=== PATIENT | male | born 1945 | race American Indian/Alaskan Native ===

== ENCOUNTER 2017-03-28 15:41 | Emergency (ER) | payer MEDICARE ==
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
[2017-03-28 16:04] VITALS: BP 95/60
[2017-03-28 16:39] LABS: Basophils % (Auto) 0.5 % (0.0-1.8); Eosinophils % (Auto) 0.5 % (0.0-4.3); Hematocrit 36.7 % (35.5-45.6); Hemoglobin 11.6 gm/dl (11.8-15.2); Mean Corpuscular HGB Conc 32 % (32-34); Mean Corpuscular Hemoglobin 23 pg (28-32); Mean Corpuscular Volume 72 fl (84-94); Platelet Count 203 K/mm3 (140-440); Red Blood Count 5.06 M/mm3 (3.65-5.03); White Blood Count 8.1 K/mm3 (4.5-11.0)
[2017-03-28 16:41] LABS: Albumin 4.1 g/dL (3.9-5); Albumin/Globulin Ratio 1.1 %; BUN/Creatinine Ratio 20.58; Bilirubin,Total 0.5 mg/dL (0.1-1.2); Calcium 10.3 mg/dL (8.4-10.2); Chloride 97.3 mmol/L (98-107); Potassium 4.3 mmol/L (3.6-5.0); Total Protein 7.7 g/dL (6.3-8.2)
== END 2017-03-28 23:08 | disposition left against medical advice (07) ==
LOC: ED 15:41
DX: F29 Unspecified psychosis not due to a substance or known physiological condition (principal); Z53.21 Procedure and treatment not carried out due to patient leaving prior to being seen by health care provider
CPT/HCPCS: 36415; 80053; 85025; G0480; 80320

== ENCOUNTER 2017-03-31 10:24 | Emergency (ER) | payer MEDICARE ==
[2017-03-31 10:56] LABS: Basophils % (Auto) 0.5 % (0.0-1.8); Eosinophils % (Auto) 1.5 % (0.0-4.3); Hematocrit 36.5 % (35.5-45.6); Hemoglobin 11.6 gm/dl (11.8-15.2); Mean Corpuscular HGB Conc 32 % (32-34); Mean Corpuscular Volume 73 fl (84-94); Platelet Count 197 K/mm3 (140-440); Red Blood Count 5.03 M/mm3 (3.65-5.03); Red Cell Distribution Width 17.7 % (13.2-15.2); White Blood Count 6.9 K/mm3 (4.5-11.0)
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
[2017-03-31 11:13] LABS: Chloride 94.8 mmol/L (98-107); Mean Corpuscular Hemoglobin 23 pg (28-32); Potassium 3.6 mmol/L (3.6-5.0)
[2017-03-31 11:37] LABS: INR 1.6 (0.87-1.13)
[2017-03-31 11:38] LABS: Partial Thromboplastin Time 29.2 Sec. (24.2-36.6)
[2017-03-31 11:55] LABS: Urine Drugs of Abuse Note Disclamer
[2017-03-31 12:05] LABS: Bilirubin,Urine NEG (Negative); Blood,Urine NEG (Negative); Ketones,Urine NEG (Negative); Leukocyte Esterase,Urine MOD (Negative); Mucus,Urine FEW /HPF; Nitrite,Urine NEG (Negative); Protein,Urine <15 mg/dL mg/dL (Negative); Urobilinogen,Urine < 2.0 mg/dL (<2.0)
[2017-03-31] MEDS ORDERED: MACROBID PO ONE (15:00)
[2017-03-31 18:05] VITALS: BP 131/78
== END 2017-03-31 18:06 ==
LOC: ED 10:24
DX: R45.6 Violent behavior (principal); F31.9 Bipolar disorder, unspecified; N30.00 Acute cystitis without hematuria; R79.1 Abnormal coagulation profile; Z86.73 Personal history of transient ischemic attack (TIA), and cerebral infarction without residual deficits; I25.2 Old myocardial infarction; I50.9 Heart failure, unspecified; M19.90 Unspecified osteoarthritis, unspecified site; F32.9 Major depressive disorder, single episode, unspecified; E78.00 Pure hypercholesterolemia, unspecified
CPT/HCPCS: 36415; 80048; 80307; 81001; 85025; 85610; 85730; 99285; G0480; 80320

== ENCOUNTER 2017-04-04 01:33 | Emergency (ER) | payer MEDICARE ==
[2017-04-04] MEDS ORDERED: TYLENOL PO ONE (05:17)
--- NOTE | 2017-04-04 05:40 | Emergency Department Report ---
ED ENT HPI - General Chief complaint: Sore Throat Stated complaint: SORE THROAT Time Seen by Provider: 04/04/17 05:07 Source: patient Mode of arrival: Ambulatory Limitations: No Limitations - History of Present Illness Initial comments: 71-year-old male past medical history CHF, hypertension, hyperlipidemia presents with complaint of 3 days of sore throat. Patient states that he is having some difficulty swallowing solids, states he is able to swallow liquids without significant difficulty. Denies fever or chills. States he is having nonproductive cough. Denies any recent travel. States he lives in a jail. Awake alert and oriented 3, not in acute distress, nontoxic appearing, ambulating without difficulty. MD complaint: sore throat Onset/Timin -: days(s) Location: throat Severity: moderate Severity scale (0 -10): 6 Quality: aching Worsens with: swallowing, eating Associated Symptoms: sore throat - Related Data Home Medications Medication Instructions Recorded Confirmed Last Taken Lisinopril [Zestril TAB] 40 mg PO QDAY 10/31/15 03/31/17 Unknown Divalproex ER [Depakote ER] 300 mg PO TID 03/31/17 03/31/17 Unknown Docusate Sodium [Colace] 100 mg PO DAILY 03/31/17 03/31/17 Unknown Metoprolol [Lopressor TAB] 12.5 mg PO TID 03/31/17 03/31/17 Unknown Potassium Chloride 10 meq PO QDAY 03/31/17 03/31/17 Unknown Warfarin [Coumadin] 4 mg PO DAILY@1700 03/31/17 03/31/17 Unknown risperiDONE 1.5 mg PO BID 03/31/17 03/31/17 Unknown traZODone [Desyrel] 50 mg PO QHS 03/31/17 03/31/17 Unknown Previous Rx's Medication Instructions Recorded Last Taken Type Bisacodyl [Dulcolax suppos] 10 mg [place] QDAY PRN #30 supp.rect 11/09/15 02/19/16 Rx Hydrochlorothiazide [HCTZ] 25 mg PO QDAY tablet 11/09/15 1 Day Ago Rx Aspirin [Aspirin BABY CHEW TAB] 81 mg PO QDAY #30 tab.chew 03/07/16 Unknown Rx AtorvaSTATin [Lipitor] 40 mg PO QHS #30 tablet 03/07/16 Unknown Rx Diltiazem Cd [Cardizem CD] 240 mg PO QDAY #30 capsule 03/07/16 Unknown Rx Furosemide [Lasix TAB] 40 mg PO BID #60 tablet 03/07/16 Unknown Rx Nitrofurantoin [place]/M-Cryst 100 mg PO Q12HR #14 capsule 03/31/17 Unknown Rx [Macrobid CAP] Acetaminophen [Acetaminophen TAB] 500 mg PO Q6HR PRN #20 tablet 04/04/17 Unknown Rx Amoxicillin/K Clav Tab [Augmentin 1 tab PO Q12HR #14 tab 04/04/17 Unknown Rx 875 mg] Benzocaine/Menthol [Cepacol Sore 1 each MM Q4H PRN #1 box 04/04/17 Unknown Rx Throat Lozenge] Allergies Allergy/AdvReac Type Severity Reaction Status Date / Time shellfish derived Allergy Itching Verified 11/20/14 13:56 ED Dental HPI - General Chief complaint: Sore Throat Stated complaint: SORE THROAT Time Seen by Provider: 04/04/17 05:07 Source: patient Mode of arrival: Ambulatory Limitations: No Limitations - Related Data Home Medications Medication Instructions Recorded Confirmed Last Taken Lisinopril [Zestril TAB] 40 mg PO QDAY 10/31/15 03/31/17 Unknown Divalproex ER [Depakote ER] 300 mg PO TID 03/31/17 03/31/17 Unknown Docusate Sodium [Colace] 100 mg PO DAILY 03/31/17 03/31/17 Unknown Metoprolol [Lopressor TAB] 12.5 mg PO TID 03/31/17 03/31/17 Unknown Potassium Chloride 10 meq PO QDAY 03/31/17 03/31/17 Unknown Warfarin [Coumadin] 4 mg PO DAILY@1700 03/31/17 03/31/17 Unknown risperiDONE 1.5 mg PO BID 03/31/17 03/31/17 Unknown traZODone [Desyrel] 50 mg PO QHS 03/31/17 03/31/17 Unknown Previous Rx's Medication Instructions Recorded Last Taken Type Bisacodyl [Dulcolax suppos] 10 mg [place] QDAY PRN #30 supp.rect 11/09/15 02/19/16 Rx Hydrochlorothiazide [HCTZ] 25 mg PO QDAY tablet 11/09/15 1 Day Ago Rx Aspirin [Aspirin BABY CHEW TAB] 81 mg PO QDAY #30 tab.chew 03/07/16 Unknown Rx AtorvaSTATin [Lipitor] 40 mg PO QHS #30 tablet 03/07/16 Unknown Rx Diltiazem Cd [Cardizem CD] 240 mg PO QDAY #30 capsule 03/07/16 Unknown Rx Furosemide [Lasix TAB] 40 mg PO BID #60 tablet 03/07/16 Unknown Rx Nitrofurantoin [place]/M-Cryst 100 mg PO Q12HR #14 capsule 03/31/17 Unknown Rx [Macrobid CAP] Acetaminophen [Acetaminophen TAB] 500 mg PO Q6HR PRN #20 tablet 04/04/17 Unknown Rx Amoxicillin/K Clav Tab [Augmentin 1 tab PO Q12HR #14 tab 04/04/17 Unknown Rx 875 mg] Benzocaine/Menthol [Cepacol Sore 1 each MM Q4H PRN #1 box 04/04/17 Unknown Rx Throat Lozenge] Allergies Allergy/AdvReac Type Severity Reaction Status Date / Time shellfish derived Allergy Itching Verified 11/20/14 13:56 ED Review of Systems ROS: Stated complaint: SORE THROAT Other details as noted in HPI Constitutional: denies: chills, fever Eyes: denies: eye pain, eye discharge, vision change ENT: throat pain. denies: ear pain Respiratory: cough. denies: shortness of breath, wheezing Cardiovascular: denies: chest pain, palpitations Endocrine: no symptoms reported Gastrointestinal: denies: abdominal pain, nausea, diarrhea Genitourinary: denies: urgency, dysuria Musculoskeletal: denies: back pain, joint swelling, arthralgia Skin: denies: rash, lesions Neurological: denies: headache, weakness, paresthesias Psychiatric: denies: anxiety, depression Hematological/Lymphatic: denies: easy bleeding, easy bruising ED Past Medical Hx - Past Medical History Hx Hypertension: Yes Hx CVA: Yes (2011) Hx Heart Attack/AMI: Yes (2013) Hx Congestive Heart Failure: Yes Hx Deep Vein Thrombosis: Yes (bilat DVT) Hx Arthritis: Yes Hx Psychiatric Treatment: Yes (bipolar; maniac depression) Hx Asthma: No Hx Tuberculosis: No Hx HIV: No Additional medical history: high cholesterol, descending aortic aneurysm 4.6cm dilation, afib - Surgical History Hx Coronary Stent: Yes (2013) Hx Pacemaker: No Hx Internal Defibrillator: No Additional Surgical History: Tonsillectomy, inferior vena caval filter placement , bladder surgery to remove a clot in the bladder. - Social History Smoking Status: Never Smoker - Medications Home Medications: Home Medications Medication Instructions Recorded Confirmed Last Taken Type Lisinopril [Zestril TAB] 40 mg PO QDAY 10/31/15 03/31/17 Unknown History Bisacodyl [Dulcolax suppos] 10 mg [place] QDAY PRN #30 supp.rect 11/09/15 03/31/17 Rx Hydrochlorothiazide [HCTZ] 25 mg PO QDAY tablet 11/09/15 03/31/17 1 Day Ago Rx Aspirin [Aspirin BABY CHEW TAB] 81 mg PO QDAY #30 tab.chew 03/07/16 03/31/17 Unknown Rx AtorvaSTATin [Lipitor] 40 mg PO QHS #30 tablet 03/07/16 03/31/17 Unknown Rx Diltiazem Cd [Cardizem CD] 240 mg PO QDAY #30 capsule 03/07/16 03/31/17 Unknown Rx Furosemide [Lasix TAB] 40 mg PO BID #60 tablet 03/07/16 03/31/17 Unknown Rx Divalproex ER [Depakote ER] 300 mg PO TID 03/31/17 03/31/17 Unknown History Docusate Sodium [Colace] 100 mg PO DAILY 03/31/17 03/31/17 Unknown History Metoprolol [Lopressor TAB] 12.5 mg PO TID 03/31/17 03/31/17 Unknown History Nitrofurantoin [place]/M-Cryst 100 mg PO Q12HR #14 capsule 03/31/17 Unknown Rx [Macrobid CAP] Potassium Chloride 10 meq PO QDAY 03/31/17 03/31/17 Unknown History Warfarin [Coumadin] 4 mg PO DAILY@1700 03/31/17 03/31/17 Unknown History risperiDONE 1.5 mg PO BID 03/31/17 03/31/17 Unknown History traZODone [Desyrel] 50 mg PO QHS 03/31/17 03/31/17 Unknown History Acetaminophen [Acetaminophen TAB] 500 mg PO Q6HR PRN #20 tablet 04/04/17 Unknown Rx Amoxicillin/K Clav Tab [Augmentin 1 tab PO Q12HR #14 tab 04/04/17 Unknown Rx 875 mg] Benzocaine/Menthol [Cepacol Sore 1 each MM Q4H PRN #1 box 04/04/17 Unknown Rx Throat Lozenge] ED Physical Exam - General Limitations: No Limitations General appearance: alert, in no apparent distress - Head Head exam: Present: atraumatic, normocephalic - Eye Eye exam: Present: normal appearance, PERRL, EOMI - ENT ENT exam: Present: mucous membranes moist - Expanded ENT Exam Expanded Throat exam: Positive: tonsillar erythema (no peritonsillar abscess on clinical exam) - Neck Neck exam: Present: normal inspection, full ROM - Respiratory Respiratory exam: Present: normal lung sounds bilaterally. Absent: respiratory distress - Cardiovascular Cardiovascular Exam: Present: regular rate, normal rhythm. Absent: systolic murmur, diastolic murmur, rubs, gallop - GI/Abdominal GI/Abdominal exam: Present: soft (abdomen soft nontender nondistended), normal bowel sounds - Rectal Rectal exam: Present: deferred - Extremities Exam Extremities exam: Present: normal inspection - Back Exam Back exam: Present: normal inspection - Neurological Exam Neurological exam: Present: alert, oriented X3, CN II-XII intact, normal gait - Psychiatric Psychiatric exam: Present: normal affect, normal mood - Skin Skin exam: Present: warm, dry, intact, normal color. Absent: rash ED Course Vital Signs 04/04/17 04/04/17 01:49 06:05 Temperature 98.6 F 98.3 F Pulse Rate 96 H 78 Respiratory 18 18 Rate Blood Pressure 110/63 Blood Pressure 136/86 [Right] O2 Sat by Pulse 99 98 Oximetry ED Medical Decision Making - Medical Decision Making A/P: Pharyngitis 1- lozenges, Augmentin, Tylenol when necessary 2- follow up with primary doctor Critical care attestation.: If time is entered above; I have spent that time in minutes in the direct care of this critically ill patient, excluding procedure time. ED Disposition Clinical Impression: Pharyngitis Qualifiers: Pharyngitis/tonsillitis etiology: unspecified etiology Qualified Code(s): J02.9 - Acute pharyngitis, unspecified Disposition: DC- TO HOME OR SELFCARE Is pt being admited?: No Does the pt Need Aspirin: No Condition: Stable Instructions: Pharyngitis (ED), Strep Throat (ED) Prescriptions: Acetaminophen [Acetaminophen TAB] 500 mg PO Q6HR PRN #20 tablet PRN Reason: Sore Throat Amoxicillin/K Clav Tab [Augmentin 875 mg] 1 tab PO Q12HR #14 tab Benzocaine/Menthol [Cepacol Sore Throat Lozenge] 1 each MM Q4H PRN #1 box PRN Reason: Sore Throat Referrals: KALIN IBARRA MD [Staff Physician] - 3-5 Days Time of Disposition: 05:57
[2017-04-04 06:06] VITALS: BP 136/86
--- NOTE | 2017-04-04 06:08 | XRay Report ---
FINAL REPORT EXAM: XR CHEST ROUTINE 2V HISTORY: Shortness of breath, cough. TECHNIQUE: A lateral and two frontal radiographs of the chest were obtained. No prior studies are available for comparison. FINDINGS: There is borderline cardiomegaly, and the aorta is moderately tortuous. There is mild hyperinflation. There is mild ill-defined opacity at the left lateral lung base, which may represent mild atelectasis and/or infiltrate. There is minimal chronic interstitial scarring at the right lateral lung base. The remainder of the lung you are clear. There is no pleural effusion or pneumothorax. Mild to moderate spondylotic changes are seen in the mid thoracic spine. IMPRESSION: Mild hyperinflation. Mild ill-defined opacity at the left lateral lung base, which may represent mild atelectasis and/or infiltrate.
== END 2017-04-04 06:07 | disposition home or self-care (01) ==
LOC: ED 01:33
DX: J02.9 Acute pharyngitis, unspecified (principal); Z86.73 Personal history of transient ischemic attack (TIA), and cerebral infarction without residual deficits; I25.2 Old myocardial infarction; I50.9 Heart failure, unspecified; M19.90 Unspecified osteoarthritis, unspecified site; F32.9 Major depressive disorder, single episode, unspecified; I82.403 Acute embolism and thrombosis of unspecified deep veins of lower extremity, bilateral; Z91.013 Allergy to seafood; E78.00 Pure hypercholesterolemia, unspecified
CPT/HCPCS: 71020; 87116; 87400; 87430; 99283

== ENCOUNTER 2017-04-11 17:22 | Emergency (ER) | payer MEDICARE ==
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
[2017-04-11 18:38] LABS: Albumin 3.8 g/dL (3.9-5); Albumin/Globulin Ratio 1.1 %; Bilirubin,Total 0.4 mg/dL (0.1-1.2); Calcium 9.7 mg/dL (8.4-10.2); Chloride 98.5 mmol/L (98-107); Potassium 4.9 mmol/L (3.6-5.0); Total Protein 7.3 g/dL (6.3-8.2)
[2017-04-11 19:01] LABS: Hematocrit 36.4 % (35.5-45.6); Hemoglobin 11.6 gm/dl (11.8-15.2); Mean Corpuscular HGB Conc 32 % (32-34); Mean Corpuscular Hemoglobin 23 pg (28-32); Mean Corpuscular Volume 73 fl (84-94); Platelet Count 203 K/mm3 (140-440); Red Cell Distribution Width 17.9 % (13.2-15.2); White Blood Count 8.1 K/mm3 (4.5-11.0)
[2017-04-11 20:22] LABS: Urine Drugs of Abuse Note Disclamer
[2017-04-11 20:22] LABS: Basophils % (Manual) 0 % (0.0-1.8); Blastocytes % (Manual) 0 %
[2017-04-11 20:23] LABS: Acanthocytes 1+; Elliptocytes 1+; Hypochromasia 1+; Ovalocytes 2+
[2017-04-11 20:24] LABS: Burr Cells 1+; Diff Status Complete; Platelet Estimate Consistent w Auto
[2017-04-11 20:31] LABS: Bilirubin,Urine NEG (Negative); Blood,Urine NEG (Negative); Ketones,Urine NEG (Negative); Leukocyte Esterase,Urine MOD (Negative); Mucus,Urine FEW /HPF; Nitrite,Urine NEG (Negative)
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
[2017-04-11 21:34] VITALS: BP 137/68
== END 2017-04-12 02:09 | disposition home or self-care (01) ==
LOC: ED 17:22
DX: R45.6 Violent behavior (principal); I10 Essential (primary) hypertension; Z86.73 Personal history of transient ischemic attack (TIA), and cerebral infarction without residual deficits; I50.9 Heart failure, unspecified; I25.2 Old myocardial infarction; I82.401 Acute embolism and thrombosis of unspecified deep veins of right lower extremity; I82.402 Acute embolism and thrombosis of unspecified deep veins of left lower extremity; F31.9 Bipolar disorder, unspecified; F17.200 Nicotine dependence, unspecified, uncomplicated; Z79.82 Long term (current) use of aspirin; Z91.013 Allergy to seafood
CPT/HCPCS: 36415; 80053; 80307; 81001; 85007; 85025; 99284; G0480; 80320